=== PATIENT | female | born 2000 | race Caucasian/White ===

== ENCOUNTER 2021-12-21 09:43 | Emergency (ER) | payer BC, SELFPAY ==
--- NOTE | ~2021-12-21 | CT_ITS ---
EXAMINATION: CT abdomen pelvis w con DATE: 12/21/2021 10:58 INDICATION: Right lower quadrant pain TECHNIQUE: Computed tomography (CT) of the abdomen and pelvis was performed with 100 cc Omnipaque 350 intravenous contrast. Automated exposure control and iterative reconstruction technique were employe d. Exam dose: 190.04 mGy-cm total exam DLP. COMPARISON: None. FINDINGS: The lung bases are clear. Normal heart size. No pericardial or pleural effusion. The liver, spleen, pancreas, adrenal glands and kidneys are normal. The gallbladder is present. No bi le duct or pancreatic duct dilatation. Normal caliber of the abdominal aorta. No intraperitoneal or retroperitoneal mass lesion or lymphade nopathy. 2.5 cm right ovarian cyst. There is moderate amount of complicated free fluid in the pelvis. Differential diagnosis includes ru ptured cyst, ruptured ectopic , pelvic infection. No bowel obstruction or intraperitoneal free air. IMPRESSION: Moderate amount of complicated free fluid in the pelvis; diffusion diagnosis given above 2.5 cm right ovarian cyst Reviewed, dictated and finalized at [facility] Reviewed, dictated and finalized at [facility]. OPERATOR
--- NOTE | ~2021-12-21 | US_ITS ---
EXAMINATION: US pelvic complete w TV DATE: 12/21/2021 12:00 INDICATION: Pelvic pain. Ovarian cyst. TECHNIQUE: Multiple transabdominal and transvaginal sonographic images of the pelvis were obtained. COMPARISON: CT abdomen and pelvis 12/21/2021 FINDINGS: TRANSABDOMINAL ULTRASOUND: The uterus measures 9.4 x 4.9 x 3.1 cm. There is a small volume of free fluid in the pelvis with low- level echoes. TRANSVAGINAL ULTRASOUND: The endometrial complex measures 4 mm in thickness. The right ovary measures 4.5 x 2.9 x 2.6 cm. Ther e is a 2.7 cm cystic mass with septations without internal vascular flow in right ovary, likely a hem orrhagic cyst. The left ovary measures 3.2 x 2.2 x 1.7 cm. There is normal vascular flow in the ovari es. IMPRESSION: 1. 2.7 cm cystic mass in right ovary, likely a hemorrhagic cyst. 2. Small volume of pelvic ascites. Reviewed, dictated and finalized at [facility]. ER WHEELCHAIR
[2021-12-21 09:48] VITALS: BP 127/81; PULSE 77; RESP 15; O2SAT 100
--- NOTE | 2021-12-21 10:07 | ED.ABDPAIN ---
HPI - Abdominal Pain General Chief Complaint: Abdominal Pain Stated Complaint: low abd pain Time Seen by Provider: 12/21/21 09:58 Source: patient Mode of arrival: ambulatory Limitations: no limitations History of Present Illness HPI narrative: This is a 21-year-old female that presents to the emergency department for right lower quadrant pain x2 days. Reports constant pain in the right lower quadrant. Associated with some nausea. She was seen at urgent care and sent here for further evaluation today. Denies fever, vomiting, dysuria, or hematuria. Related Data Home Medications Medication Instructions Recorded Confirmed etonogestrel 68 mg subdermal 1 implant SUBDERMAL ONCE 07/08/20 07/08/20 implant Allergies Allergy/AdvReac Type Severity Reaction Status Date / Time No Known Allergies Allergy Verified 07/08/20 11:02 Review of Systems Review of Systems: CONSTITUTIONAL: Denies fever GASTROINTESTINAL: Reports abdominal pain, nausea. Denies vomiting, or diarrhea. GENITOURINARY: Denies dysuria or hematuria. All systems reviewed & are unremarkable except as noted in HPI and below PMFSH Past Medical History Medical History (Updated 12/21/21 @ 13:39 by Radha Sheridan PA-C) No active medical problems Social History Social History Smoking status: Never smoker Alcohol intake: current Substance use: never Exam Narrative: GENERAL: Well-appearing, well-nourished, and in no acute distress. HEAD: Normocephalic, atraumatic. EYES: EOMI. CHEST: Clear to auscultation. No respiratory distress. No wheezes rales or rhonchi HEART: Regular rate and rhythm. No murmur heard. Normal peripheral pulses. ABDOMEN: Soft, nondistended, normal active bowel sounds. Tender to palpation in the right lower quadrant. No CVA tenderness EXTREMITIES: Normal range of motion. No edema. SKIN: Warm, dry, no rash. NEURO: No focal deficits. Alert and oriented x3. PSYCH: Normal mood and affect Course Vital Signs Vital signs: Vital Signs Pulse Rate 77 12/21/21 09:48 Respiratory Rate 15 12/21/21 09:48 Blood Pressure 127/81 12/21/21 09:48 Pulse Oximetry 100 12/21/21 09:48 Temperature 97.9 F 12/21/21 13:31 Pulse Rate 70 12/21/21 12:05 Respiratory Rate 14 12/21/21 12:05 Blood Pressure 123/68 12/21/21 12:05 Pulse Oximetry 99 12/21/21 12:05 MDM - Abdominal Pain MDM Narrative Medical decision making narrative: Patient presents to the emergency department for right lower quadrant abdominal pain. Present over the last couple of days. She is afebrile and nontoxic-appearing. Her vitals are stable. CBC is without leukocytosis. Hemoglobin is 12.9. Metabolic panel without concerning findings. UA without signs of infection. Bedside test is negative. CT scan of the abdomen and pelvis shows moderate amount of complicated free fluid in the pelvis and a 2.5 cm right ovarian cyst. Pelvic ultrasound shows a 2.7 cm cystic mass in the right ovary, likely hemorrhagic cyst. Small volume of pelvic ascites. Normal vascular flow to the ovaries. Spoke with Dr. Leroy about patient and work-up. Will be given pain medication as needed for home. Follow-up in clinic. Return precautions. Patient is stable and felt appropriate for further outpatient evaluation. She was given warnings to return to the ER Lab Data Attestation: I reviewed the patient's lab results. Result diagrams: 12/21/21 10:10 12/21/21 10:10 Labs: Lab Results 12/21/21 12/21/21 12/21/21 Range/Units 10:10 10:10 10:10 WBC 6.9 (4.5-10.0) K/mm3 RBC 4.11 L (4.2-5.4) M/mm3 Hgb 12.9 (12.0-15.0) g/dL Hct 37.5 (37.0-47.0) % MCV 91.2 (80-100) fl MCH 31.4 (26-34) pg MCHC 34.4 (32-36) g/dl RDW 12.1 (11.5-14.5) % Plt Count 326 (150-375) k/mm3 MPV 9.4 (7.4-10.4) fl Immature Gran % (Auto) 0.1 (0-0.5) % Neut
[2021-12-21 10:18] LABS: Basophils Percent Auto 0.4 % (0.2-1.2); Eosinophils Percent Auto 0.3 % (0-4.4); Hematocrit 37.5 % (37.0-47.0); Hemoglobin 12.9 g/dL (12.0-15.0); Immature Granulocyte Absolute 0.01 K/mm3 (0.00-0.031); Immature Granulocyte Percent A 0.1 % (0-0.5); Lymphocytes Absolute Auto 1.49 K/mm3 (0.9-3.2); Lymphocytes Percent Auto 21.7 % (18.3-44.2); Mean Corpuscular HGB Conc 34.4 g/dl (32-36); Mean Corpuscular Hemoglobin 31.4 pg (26-34); Mean Corpuscular Volume 91.2 fl (80-100); Mean Platelet Volume 9.4 fl (7.4-10.4); Monocytes Absolute Auto 0.8 K/mm3 (0.1-0.6); Monocytes Percent Auto 10.9 % (2.6-8.5); Neutrophils Absolute Auto 4.6 K/mm3 (1.3-6.7); Neutrophils Percent Auto 66.6 % (45.5-73.1); Platelet Count Result 326 k/mm3 (150-375); Red Blood Count 4.11 M/mm3 (4.2-5.4); Red Cell Distribution Width 12.1 % (11.5-14.5); White Blood Count 6.9 K/mm3 (4.5-10.0)
[2021-12-21 10:21] LABS: Add Urine Microscopic? NO; Appearance Urine Clear (Clear); Bilirubin Urine Negative (Negative); Blood Urine Negative (Negative); Color Urine Straw (Yellow); Glucose Urine UA Negative (Negative); Ketones Urine Negative (Negative); Leukocyte Esterase Ur Negative LEU/UL (Negative); Nitrate Urine Negative (Negative); Protein Urine Negative (Negative); Urobilinogen Urine Negative mg/dL (<2.0)
[2021-12-21 10:34] LABS: Alanine Aminotransferase 15 U/L (4-35); Albumin Level 5.3 g/dL (3.5-5.1); Alkaline Phosphatase 60 U/L (38-126); Anion Gap 10 mmol/L (8-16); Aspartate Amino Transferase 28 U/L (14-36); Blood Urea Nitrogen 6 mg/dL (7-17); Calcium 9.1 mg/dL (8.4-10.2); Carbon Dioxide 24 mmol/L (22-30); Chloride 104 mmol/L (98-107); Estimated CRCL calculation 99 ml/min; Estimated Glomerular Filt Rate > 60; Glucose 90 mg/dL (65-110); Lipase 36 U/L (23-300); Potassium 3.6 mmol/L (3.4-5.0); Sodium 138 mmol/L (137-145)
[2021-12-21 12:05] VITALS: BP 123/68; PULSE 70; RESP 14; O2SAT 99
[2021-12-21 13:31] VITALS: TEMP 36.6
[2021-12-21 13:44] VITALS: BP 120/63; PULSE 68; RESP 14; TEMP 36.2; O2SAT 100
== END 2021-12-21 13:45 | disposition home or self-care (01) ==
PROVIDERS: Physician Assistant; Emergency Provider Emergency Medicine
DX: N83.201 Unspecified ovarian cyst, right side (principal)
CPT/HCPCS: 36415; 74177; 76830; 76856; 80053; 81003; 81025; 83690; 85025; 96365; 99284; J0131; Q9967

== ENCOUNTER 2022-01-25 23:25 | Emergency (ER) | payer BC, SELFPAY ==
--- NOTE | ~2022-01-25 | XR_ITS ---
EXAMINATION: XR chest 2V DATE: 01/25/2022 23:53 INDICATION: Chest pain. TECHNIQUE: Frontal and lateral views of the chest were obtained. COMPARISON: CT abdomen and pelvis 12/21/2021 FINDINGS: The chest demonstrates clear lungs without pneumonia, pleural effusion, or pneumothorax. Th e heart size is normal. IMPRESSION: 1. No acute cardiopulmonary disease. Reviewed, dictated and finalized at [facility].
--- NOTE | 2022-01-25 23:27 | ECG_ITS ---
Measurements Intervals [place] Rate: 87 P: 47 WV: 132 QRS: 65 QRSD: 94 T: 36 QT: 365 QTc: 441 Interpretive Statements SINUS RHYTHM NO PREVIOUS ECG AVAILABLE FOR COMPARISON Electronically Signed On 01-26-2022 18:50:12 CDT by Minal Bella M.D.
[2022-01-25 23:30] VITALS: BP 135/87; PULSE 86; RESP 20; TEMP 36.9; O2SAT 100
[2022-01-25 23:40] VITALS: O2SAT 99
[2022-01-25 23:45] VITALS: BP 115/78; PULSE 67; RESP 15; O2SAT 100
[2022-01-25 23:56] LABS: Prothrombin Time 12.8 Seconds (11.1-14.7)
[2022-01-25 23:57] LABS: Partial Thromboplastin Time 27.4 SECONDS (22.3-36.8)
[2022-01-25 23:59] LABS: Alanine Aminotransferase 12 U/L (4-35); Albumin Level 4.5 g/dL (3.5-5.1); Alkaline Phosphatase 60 U/L (38-126); Anion Gap 8 mmol/L (8-16); Aspartate Amino Transferase 21 U/L (14-36); Bilirubin,Total 0.4 mg/dL (0.2-1.3); Blood Urea Nitrogen 10 mg/dL (7-17); Calcium 9.5 mg/dL (8.4-10.2); Carbon Dioxide 25 mmol/L (22-30); Chloride 101 mmol/L (98-107); Estimated CRCL calculation 99 ml/min; Estimated Glomerular Filt Rate > 60; Glucose 92 mg/dL (65-110); Lipase 55 U/L (23-300); Potassium 3.4 mmol/L (3.4-5.0); Sodium 134 mmol/L (137-145)
--- NOTE | 2022-01-25 23:59 | ED.CHESTPAIN ---
HPI - Chest Pain General Chief Complaint: Chest Pain Stated Complaint: CHEST PAIN Time Seen by Provider: 01/25/22 23:35 Source: patient and RN notes reviewed Mode of arrival: ambulatory Limitations: no limitations History of Present Illness HPI narrative: This is a 21 year old female who presents for evaluation of left chest pain. Patient developed pain 3 hours ago. She describes pain as heaviness with radiation to left arm. She took Tums without relief. She denies associated nausea, vomiting , fever, chills, shortness of breath, abdominal pain or diaphoresis. She reports 5 days ago she did have cold symptoms with sore throat and runny nose. She took a covid test which was negative. She denies previous similar episodes of pain. She thinks her pain may worsen with standing or breathing deep. Related Data Home Medications Medication Instructions Recorded Confirmed etonogestrel 68 mg subdermal 1 implant SUBDERMAL ONCE 07/08/20 07/08/20 implant Allergies Allergy/AdvReac Type Severity Reaction Status Date / Time No Known Allergies Allergy Verified 07/08/20 11:02 Review of Systems Review of Systems: All systems reviewed & are unremarkable except as noted in HPI and below PMFSH Past Medical History Medical History (Updated 01/26/22 @ 07:42 by Emily Patton MD) No active medical problems Social History Social History (Updated 01/26/22 @ 00:04 by Emily Patton MD) Smoking status: Current every day smoker Tobacco type: e-cigarettes/vaping Alcohol intake: current Substance use: never Exam Const: General: no acute distress and alert Orientation/consciousness: patient oriented x3 Eyes: EOM: EOMs intact bilaterally Chest: Chest palpation & inspection: normal inspection of the chest Resp: Effort & Inspection: normal respiratory effort and no retractions Auscultation: clear to auscultation bilaterally Cardio: Rate: regular rate Rhythm: regular rhythm Heart sounds: no murmurs GI: GI Palp: Yes Soft to palpation, No Tenderness to palpation present (GI) and No Guarding due to palpation present (GI) Auscultation: normal bowel sounds Skin: General skin exam: normal color Rashes: no rashes Neuro: General: patient oriented x3 and CN's II-XI intact bilaterally Extrem: General: normal to inspection Psych: Mental Status: mental status grossly normal Affect: normal affect Course Reevaluation(s) Reevaluation #1: Nurse states patient left AMA Date: 01/26/22 Time: 00:05 Vital Signs Vital signs: Vital Signs Temperature 98.4 F 01/25/22 23:30 Pulse Rate 86 01/25/22 23:30 Respiratory Rate 20 01/25/22 23:30 Blood Pressure 135/87 01/25/22 23:30 Pulse Oximetry 100 01/25/22 23:30 Temperature 98.4 F 01/25/22 23:30 Pulse Rate 67 01/25/22 23:45 Respiratory Rate 15 01/25/22 23:45 Blood Pressure 115/78 01/25/22 23:45 Pulse Oximetry 100 01/25/22 23:45 MDM - Chest Pain Lab Data Result diagrams: 01/25/22 23:38 01/25/22 23:38 Labs: Lab Results 01/25/22 01/25/22 01/25/22 Range/Units 23:38 23:38 23:38 WBC 11.2 H (4.5-10.0) K/mm3 RBC 3.93 L (4.2-5.4) M/mm3 Hgb 12.3 (12.0-15.0) g/dL Hct 36.1 L (37.0-47.0) % MCV 91.9 (80-100) fl MCH 31.3 (26-34) pg MCHC 34.1 (32-36) g/dl RDW 12.1 (11.5-14.5) % Plt Count 310 (150-375) k/mm3 MPV 9.6 (7.4-10.4) fl Immature Gran % (Auto) 0.3 (0-0.5) % Neut % (Auto) 59.8 (45.5-73.1) % Lymph % (Auto) 28.1 (18.3-44.2) % [place] % (Auto) 10.5 H (2.6-8.5) % Eos % (Auto) 0.9 (0-4.4) % Baso % (Auto) 0.4 (0.2-1.2) % Lymph # (Auto) 3.14 (0.9-3.2) K/mm3 [place] # (Auto) 1.2 H (0.1-0.6) K/mm3 Eos # (Auto) 0.1 (0-0.3) K/mm3 Baso # (Auto) 0.0 (0.0-0.1) K/mm3 Abs Immat Gran (auto) 0.03 (0.00-0.031) K/mm3 Absolute Neuts (auto) 6.7 (1.3-6.7) K/mm3 Absolute Nucleated RBC 0.0 (0.0-0.012) K/m
[2022-01-26 00:05] LABS: Basophils Percent Auto 0.4 % (0.2-1.2); Eosinophils Absolute Auto 0.1 K/mm3 (0-0.3); Eosinophils Percent Auto 0.9 % (0-4.4); Hematocrit 36.1 % (37.0-47.0); Hemoglobin 12.3 g/dL (12.0-15.0); Immature Granulocyte Absolute 0.03 K/mm3 (0.00-0.031); Immature Granulocyte Percent A 0.3 % (0-0.5); Lymphocytes Absolute Auto 3.14 K/mm3 (0.9-3.2); Lymphocytes Percent Auto 28.1 % (18.3-44.2); Mean Corpuscular HGB Conc 34.1 g/dl (32-36); Mean Corpuscular Hemoglobin 31.3 pg (26-34); Mean Corpuscular Volume 91.9 fl (80-100); Mean Platelet Volume 9.6 fl (7.4-10.4); Monocytes Absolute Auto 1.2 K/mm3 (0.1-0.6); Monocytes Percent Auto 10.5 % (2.6-8.5); Neutrophils Absolute Auto 6.7 K/mm3 (1.3-6.7); Neutrophils Percent Auto 59.8 % (45.5-73.1); Platelet Count Result 310 k/mm3 (150-375); Red Blood Count 3.93 M/mm3 (4.2-5.4); Red Cell Distribution Width 12.1 % (11.5-14.5); White Blood Count 11.2 K/mm3 (4.5-10.0)
[2022-01-26 00:11] LABS: Troponin I < 0.012 ng/mL (0.000-0.034)
[2022-01-26 00:32] LABS: D Dimer < 0.22 ug/mL (<0.48)
== END 2022-01-26 01:20 | disposition left against medical advice (07) ==
LOC: ANHED 23:55
PROVIDERS: Emergency Provider General Practice
DX: R07.89 Other chest pain (principal); F17.290 Nicotine dependence, other tobacco product, uncomplicated
CPT/HCPCS: 36415; 71046; 80053; 83690; 84484; 85025; 85380; 85610; 85730; 93005; 99284

== ENCOUNTER 2022-06-07 10:19 | Outpatient (CLI) | payer BC, SELFPAY ==
--- NOTE | ~2022-06-07 | US_ITS ---
EXAMINATION: US pelvic complete w TV DATE: 06/07/2022 11:16 INDICATION: Pelvic and perineal pain TECHNIQUE: Multiple transabdominal and endovaginal sonographic images of the pelvis were obtained. COMPARISON: 12/21/2021 FINDINGS: The uterus measures 8.3 x 3.1 x 3.9 cm. The endometrial complex measures 2 mm. An IUD is pr esent in expected position. The right ovary measures 2.9 x 1.3 x 3.2 cm. The left ovary measures 5.7 x 6.8 x 5.3 cm. There is a 5.8 x 5.1 x 4.5 cm cystic mass of the left adnexa with reticular internal echoes. There is normal vascular flow in the ovaries. There is no free fluid in the pelvis. IMPRESSION: 1. Probable hemorrhagic cyst of the left ovary. Sonographic follow-up in 8-12 weeks is recommended. Reviewed, dictated and finalized at [facility]. IMPRESSION: 1. Probable hemorrhagic cyst of the left ovary. Sonographic follow-up in 8-12 w eeks is recommended.
== END 2022-06-07 10:20 | disposition home or self-care (01) ==
LOC: ANHIMG 10:22
PROVIDERS: Visit Provider Obstetrics & Gynecology
DX: R10.2 Pelvic and perineal pain (principal)
CPT/HCPCS: 76830; 76856